=== PATIENT | male | born 1975 | race Caucasian/White ===

== ENCOUNTER 2016-08-11 10:57 | Emergency (ER) | payer SELFPAY ==
[2016-08-11] MEDS ORDERED: ACETAMINOPHEN 500 MG TABLET PO ONE (11:04)
--- NOTE | 2016-08-11 11:04 | Emergency Department Record ---
History of Present Illness - General Stated complaint: FINGER INJURY/WC Time Seen by Provider: 08/11/16 10:58 Source: Patient Mode of Arrival: Ambulatory Limitations: No limitations - History of Present Illness Initial comments: 41 yo male presents with a left middle finger injury. He hit the finger with a hammer. The pain was severe. He instantly had nausea and vomiting due to the pain. The finger continues to her and his nausea persists. The nail is intact. He is right handed. No chest pain, back pain, shortness of breath, no abdominal pain. MD Complaint: Joint pain, Other (Nausea and vomiting) -: Hour(s) (4) Location: Left, Other (Middle finger) -: Yes Arthralgia Radiation: Distal Quality: Aching Consistency: Constant Improves with: Nothing Worsens with: Palpation Associated Symptoms: Other (Nausea and vomiting) - Related Data Previous Rx's Medication Instructions Recorded Hydrocodone/Acetaminophen [Tiro 1 each PO Q8H #10 tablet 08/11/16 5-325 Tablet] Ondansetron [Zofran Odt] 4 mg PO Q8H #10 tab.rapdis 08/11/16 Allergies Allergy/AdvReac Type Severity Reaction Status Date / Time No Known Allergies Allergy PT UNSURE Verified 08/11/16 11:05 OF REACTION Review of Systems Constitutional: Denies: Chills, Fever, Weakness Eyes: Denies: Eye discharge ENT: Denies: Congestion, Throat pain Respiratory: Denies: Cough Cardiovascular: Denies: Chest pain, Palpitations, Syncope Endocrine: Denies: Fatigue Gastrointestinal: Reports: As per HPI, Nausea, Vomiting. Denies: Abdominal pain , Diarrhea Genitourinary: Denies: Dysuria, Frequency, Hematuria Musculoskeletal: Reports: As per HPI, Arthralgia Skin: Reports: As per HPI, Bruising Neurological: Denies: Confusion, Headache Psychiatric: Denies: Anxiety Hematological/Lymphatic: Denies: Blood Clots, Easy bleeding, Easy bruising, Swollen glands Physical Exam - General General Appearance: Alert, Oriented x3, Cooperative, No acute distress Limitations: No limitations - Head Head exam: Atraumatic, Normal inspection - Eye Eye exam: Normal appearance - ENT ENT exam: Normal exam Ear exam: Normal external inspection Nasal Exam: Normal inspection Mouth exam: Normal external inspection - Neck Neck exam: Normal inspection - Respiratory Respiratory exam: Normal lung sounds bilaterally. negative: Respiratory distress - Cardiovascular Cardiovascular Exam: Regular rate, Normal rhythm, Normal heart sounds Peripheral Pulses: 2+: Radial (L) - Rectal Rectal exam: Deferred - exam: Deferred - Extremities Extremities exam: Normal capillary refill, Tenderness. negative: Normal inspection, Calf tenderness, Pedal edema Image of Hand: 1 - tender swelling, bruising, 50% subungual hematoma - Neurological Neurological exam: Alert, Normal gait, Oriented X3, Reflexes normal - Psychiatric Psychiatric exam: Normal affect, Normal mood. negative: Agitated, Anxious - Skin Skin exam: Dry, Intact, Normal color, Warm Course - Reevaluation(s) Reevaluation #1: The finger XR was reviewed He has a tuft fracture of the tip 08/11/16 11:36 Reevaluation #2: Finger splint provided 08/11/16 11:42 Disposition Disposition: Discharge Clinical Impression: Finger contusion Qualifiers: Encounter type: initial encounter Finger: index finger Damage to nail status: without damage Laterality: left Qualified Code(s): S60.022A - Contusion of left index finger without damage to nail, initial encounter Nausea and vomiting Qualifiers: Vomiting type: unspecified Vomiting Intractability: non-intractable Qualified Code(s): R11.2 - Nausea with vomiting, unspecified Closed fracture of tuft of distal phalanx of finger Qualifiers: Encounter type: initial encounter Qualified Code(s): S62.639A - Displaced fracture of distal phalanx of unspecified finger, initial encounter for closed fracture Disposition: Home, Self-Care Condition: (1) Good Instructions: Finger Fracture (ED) Additional Instructions: Elevate to prevent swelling and throbbing Return if you have uncontrolled pain, nausea, vomiting or any new concerns Prescriptions: Hydrocodone/Acetaminophen [Tiro 5-325 Tablet] 1 each PO Q8H #10 tablet Ondansetron [Zofran Odt] 4 mg PO Q8H #10 tab.rapdis Time of Disposition: 11:38
[2016-08-11] MEDS ORDERED: ONDANSETRON 4 MG ODT TABLET SL ONE (11:12)
--- NOTE | 2016-08-11 17:21 | RADIOLOGY REPORT ---
EXAM: FINGER(S), LEFT HISTORY: PATIENT SMASHED HIS LEFT THIRD DIGIT TODAY WITH A HAMMER. TECHNIQUE: Three views of the left third digit are provided without comparison examinations. FINDINGS: There is a comminuted, mildly displaced fracture of the distal left third phalangeal tuft. Soft tissue swelling is noted at this location. No radiopaque foreign bodies are identified. IMPRESSION: COMMINUTED FRACTURE OF THE DISTAL LEFT THIRD PHALANGEAL TUFT IS NOTED. JOB NUMBER: [id number] MTDD
== END 2016-08-11 11:53 | disposition home or self-care (01) ==
LOC: ER 10:57
DX: S62.633A Displaced fracture of distal phalanx of left middle finger, initial encounter for closed fracture (principal); R11.2 Nausea with vomiting, unspecified; W22.8XXA Striking against or struck by other objects, initial encounter; Y93.43 Activity, gymnastics; Y99.0 Civilian activity done for income or pay
CPT/HCPCS: 73140; 99283

== ENCOUNTER 2018-06-22 20:27 | Emergency (ER) | payer BC ==
--- NOTE | 2018-06-22 20:40 | Emergency Department Record ---
History of Present Illness - General Chief complaint: ENT Stated complaint: LUMP IN NECK Time Seen by Provider: 06/22/18 20:33 Source: Patient Mode of Arrival: Ambulatory Limitations: No limitations - History of Present Illness Initial comments: 43 yo male presents to ED for evaluation of a mass to the left neck which has been present for approximately 6 months. Patient denies fevers, chills, or sore throat symptoms. Patient reports a significant family history of cancer, reports that his family convinced him to come to the ED for evaluation given the duration of his symptoms. Patient reports that he is a smoker, denies significant alcohol use. MD complaint: Other (Neck mass) Onset/Timin -: Month(s) Consistency: Constant, Getting worse Improves with: None Worsens with: None - Related Data Home Medications Medication Instructions Recorded Confirmed Last Taken No Home Med [NO HOME MEDS] 06/22/18 06/22/18 Unknown Allergies Allergy/AdvReac Type Severity Reaction Status Date / Time No Known Drug Allergies Allergy Verified 06/22/18 20:29 Travel Screening - Travel/Exposure Within Last 30 Days Have you traveled within the last 30 days?: No - Travel Symptoms Symptom Screening: None Review of Systems Constitutional: Denies: Chills, Fever, Malaise, Night sweats Eyes: Denies: Eye discharge, Eye pain ENT: Denies: Congestion, Ear pain, Epistaxis Respiratory: Denies: Cough, Dyspnea Cardiovascular: Denies: Chest pain, Dyspnea on exertion Endocrine: Denies: Fatigue, Heat or cold intolerance Gastrointestinal: Denies: Abdominal pain, Nausea, Vomiting Genitourinary: Denies: Incontinence, Retention Musculoskeletal: Reports: Other (Neck mass). Denies: Arthralgia, Back pain, Gout, Joint swelling Skin: Denies: Bruising, Change in color Neurological: Denies: Abnormal gait, Confusion, Headache, Seizure Psychiatric: Denies: Anxiety Hematological/Lymphatic: Denies: Anemia, Blood Clots Past Medical History - SOCIAL HISTORY Smoking Status: Current every day smoker - RESPIRATORY Hx Respiratory Disorders: No - CARDIOVASCULAR Hx Cardio Disorders: No - NEURO Hx Neuro Disorders: No - GI Hx GI Disorders: No - Hx Genitourinary Disorders: No - ENDOCRINE Hx Endocrine Disorders: No - MUSCULOSKELETAL Hx Musculoskeletal Disorders: No - PSYCH Hx Psych Problems: No - HEMATOLOGY/ONCOLOGY Hx Hematology/Oncology Disorders: No Family Medical History Any Significant Family History?: Yes Hx Cancer: Father, Grandparents *Diabetes Comment: Uncle Physical Exam - General General Appearance: Alert, Oriented x3, Cooperative, No acute distress Limitations: No limitations - Head Head exam: Atraumatic, Normocephalic, Normal inspection Head exam detail: negative: Abrasion, Contusion, Obrien's sign, General tenderness, Hematoma, Laceration - Eye Eye exam: Normal appearance. negative: Conjunctival injection, Periorbital swelling, Periorbital tenderness, Scleral icterus - ENT Ear exam: negative: Auricular hematoma, Auricular trauma Nasal Exam: negative: Active bleeding, Discharge, Dried blood, Foreign body Mouth exam: negative: Drooling, Laceration, Muffled voice, Tongue elevation - Neck Neck exam: Lymphadenopathy, Other (Lesion anterior cervical chain measuring approximately 2.0 cm in diameter). negative: Meningismus, Tenderness - Respiratory Respiratory exam: Normal lung sounds bilaterally. negative: Rales, Respiratory distress, Rhonchi, Stridor - Cardiovascular Cardiovascular Exam: Regular rate, Normal rhythm, Normal heart sounds - GI/Abdominal GI/Abdominal exam: Soft. negative: Rebound, Rigid, Tenderness - Rectal Rectal exam: Deferred - exam: Deferred - Extremities Extremities exam: Normal inspection. negative: Pedal edema, Tenderness - Back Back exam: Denies: CVA tenderness (R), CVA tenderness (L) - Neurological Neurological exam: Alert, Normal gait, Oriented X3 - Psychiatric Psychiatric exam: Normal affect, Normal mood - Skin Skin exam: Normal color. negative: Abrasion Type of lesion: negative: abrasion Course Vital Signs 06/22/18 20:32 Temperature 98.1 F Pulse Rate 78 Respiratory 16 Rate Blood Pressure 131/87 Pulse Ox 98 - Reevaluation(s) Reevaluation #1: 06/22/18 21:51 Laboratory studies were reviewed and are grossly unremarkable for an acute process. Reevaluation #2: 06/22/18 22:11 CT Neck Soft-Tissue: Lymphadenopathy left jugular chain, largest measuring 2.4 cm Consider biopsy Patient was updated on all results, reviewed imaging with the patient and family members. Will place consult for Dr. Allen tomorrow morning for possible biopsy as outpatient. Medical Decision Making - Lab Data Result diagrams: 06/22/18 20:40 06/22/18 20:40 Disposition Disposition: Discharge Clinical Impression: Lymphadenopathy of left cervical region Disposition: Home, Self-Care Condition: (2) Stable Instructions: Lymphadenopathy (ED) Additional Instructions: Return to ED if your symptoms worsen or if you have any concerns. Follow-up with Dr. Dowell tomorrow morning for further evaluation. Referrals: DEE ALLEN [DOCTOR OF OSTEOPATH] - [facility] [Provider Group] Forms: Patient Portal Access Time of Disposition: 22:14 Quality - Quality Measures Quality Measures: N/A - Blood Pressure Screening Does Patient Have Any of the Following: No Blood Pressure Classification: Pre-Hypertensive BP Reading Systolic Measurement: 131 Diastolic Measurement: 87 Screening for High Blood Pressure: < Pre-Hypertensive BP, F/U Documented > [ G8950] Pre-Hypertensive Follow-up Interventions: Referral to alternative/primary care provider.
[2018-06-22 20:54] LABS: ABSOLUTE NEUTROPHIL COUNT 3.64; BASO % 0.5 % (0-6); EOS % 1.4 % (0-6); GRAN % 47.2 % (47-80); HEMATOCRIT 40.4 % (42.0-52.0); HEMOGLOBIN 13.1 gm/dl (14.0-18.0); MEAN CELL VOLUME 97.8 fl (81-97); MEAN CORPUSCULAR HEMOGLOBIN 31.7 pg (27-33); MEAN CORPUSCULAR HGB CONC 32.4 g/dl (32-36); MEAN PLATELET VOLUME 9.6 fl (7.4-10.4); MONO % 6.9 % (0-9); PLATELET COUNT 232 K/uL (130-400); RED BLOOD COUNT 4.13 M/uL (4.40-5.70); WHITE BLOOD COUNT W/O DIFF 7.7 K/uL (4.2-12.2)
[2018-06-22 21:03] LABS: BLOOD UREA NITROGEN 13 mg/dL (6-20); CREATININE 0.9 mg/dL (0.7-1.2); EST GLOMERULAR FILTRATION RATE > 60 mL/min
[2018-06-22 21:04] LABS: TOTAL PROTEIN 5.8 g/dL (6.6-8.7)
[2018-06-22 21:06] LABS: GLUCOSE,RANDOM 91 mg/dL (74-109)
[2018-06-22 21:08] LABS: ALT/SGPT 9 U/L (<41); AST/SGOT 16 U/L (10.0-50.0)
[2018-06-22 21:09] LABS: ALB/GLOB RATIO 2.1 (1.1-1.8); ALBUMIN 3.9 g/dL (4.0-5.0); ALKALINE PHOSPHATASE 59 U/L (40-129)
== END 2018-06-22 22:30 | disposition home or self-care (01) ==
LOC: ER 20:27
DX: R59.0 Localized enlarged lymph nodes (principal); F17.210 Nicotine dependence, cigarettes, uncomplicated
CPT/HCPCS: 70491; 80053; 85025; 99283; 99284

== ENCOUNTER 2018-07-05 06:44 | Day surgery (SDC) | payer BC ==
[~2018-07-05 06:44] MED LIST: ACETAMINOPHEN 1,000 MG/100 ML BTL IVPB ONE
[2018-07-05] MEDS ORDERED: PROPOFOL 10 MG/ML VIAL IV ONE (06:45)
[2018-07-05] MEDS ORDERED: LIDOCAINE 2% MDV (20MG/ML) 20ML VIAL IV ONE (06:45)
[2018-07-05] MEDS ORDERED: MIDAZOLAM HCL 2MG/2ML VIAL IV ONE (06:45)
[2018-07-05] MEDS ORDERED: FENTANYL PF 100MCG/2ML VIAL IV ONE (06:45)
[2018-07-05] MEDS ORDERED: ONDANSETRON HCL IV 4 MG/2 ML VIAL IVP ONE (06:45)
[2018-07-05] MEDS ORDERED: RINGERS SOLUTION,LACTATED 1,000 ML IV ONE ×2 (07:15→09:07)
[2018-07-05] MEDS ORDERED: BUPIVACAINE 0.25% W/EPI MPF 30ML VIAL SQ ONE (08:56)
[2018-07-05] MEDS ORDERED: HYDROCODONE/APAP 5/325MG TABLET PO ONE (09:40)
--- NOTE | 2018-07-06 08:20 | Operative Note ---
DATE OF SURGERY: 07/05/2018 SURGEON: Calixto Guzman DO PREOPERATIVE DIAGNOSIS: Left cervical lymphadenopathy. POSTOPERATIVE DIAGNOSIS: Left cervical lymphadenopathy. OPERATION: Excision of left cervical lymph node. INDICATION: The patient is a 43-year-old male who has had a mass in the left side of his neck for quite some time. He did have imaging which was consistent with probable lymph node. We did discuss excision. Risks, benefits, and alternatives were discussed. Risks include bleeding, infection, postop seroma formation, injury to facial nerve. He understood this fully. Thereafter, consent was signed and questions answered. PROCEDURE: The patient was taken to the operating room and placed in a supine position. General anesthesia was administered per the department of anesthesia. The patient's neck was prepped and draped in the usual fashion. At this time, adequate timeout was performed. He did receive preoperative antibiotic. At this time, the area over the mass was anesthetized with a total of 10 mL of 0.25% Sensorcaine with epinephrine. A 2 cm oblique incision was made along the jawline on the left, just below the jawline on the left. This was carried down to a capsule of what appeared to be a large lipoma. This was dissected free from the surrounding tissue with cautery. I did ligate the pedicle with 3-0 Vicryl. The specimen was then sent fresh for flow cytometry. The wound was then rechecked and found to be hemostatic. It was closed with 3-0 and 4-0 Vicryl. He was taken to the recovery room in satisfactory condition. Final pathology pending. [facility] DIVISIONKirsty
== END 2018-07-05 10:00 | disposition home or self-care (01) ==
LOC: SUR 06:44
PROVIDERS: ATTEND Surgery
DX: R59.0 Localized enlarged lymph nodes (principal)
CPT/HCPCS: 38510; 00320; J2405; J3010; J7120

== ENCOUNTER 2018-07-17 16:55 | Emergency (ER) | payer BC ==
[2018-07-17] MEDS ORDERED: 0.9 % SODIUM CHLORIDE 1,000 ML BAG IV ONE ×2 (17:18→18:21)
--- NOTE | 2018-07-17 17:21 | Emergency Department Record ---
History of Present Illness - General Chief Complaint: Back Pain/Injury Stated Complaint: BACK INJURY Time Seen by Provider: 07/17/18 17:07 Source: Patient - History of Present Illness Initial Comments: The patient states he was helping a friend build his barn when he fell from 7 feet high onto a metal bar from a forklift. He landed on his right posterior pelvis/flank/buttock. This is his first day to be seen for the injury as he was already off work recovering from a lymph node biopsy from 10 days ago. He states he decided to come in because it is more swollen over his bruise on his sacrum and right buttock. He has been having BM's, but he has decreased apetite. He denies chest, head, neck, abdomen pain. Prior to arriving he states he ate a giant sub sandwich. He states he lives alone and has partial custody of his 8 year old daughter who just went to her mother's yesterday, which is partly why he waited to come here. About 10 days ago he had a lymph node bx by Dr. Guzman and was given [employer] for that. He states the bx came back normal. MD Complaint: Back injury (right buttock, sacrum, lower flank), Fall Onset/Timin -: Days(s) Similar Symptoms Previously: No Radiation: None Severity: Moderate Severity scale (1-10): 8 Quality: Sharp Consistency: Constant Improves With: None Worsens With: Movement Context: Fall Associated Symptoms: Denies other symptoms - Related Data Allergies Allergy/AdvReac Type Severity Reaction Status Date / Time No Known Drug Allergies Allergy Verified 06/22/18 20:29 Travel Screening - Travel/Exposure Within Last 30 Days Have you traveled within the last 30 days?: No Review of Systems Reviewed: No additional complaints except as noted below Constitutional: Reports: As per HPI. Denies: Chills, Fever, Malaise, Night sweats, Weakness, Weight change Eyes: Reports: As per HPI. Denies: Eye discharge, Eye pain, Photophobia, Vision change ENT: Reports: As per HPI. Denies: Congestion, Dental pain, Ear pain, Epistaxis, Hearing loss, Throat pain Respiratory: Reports: As per HPI. Denies: Cough, Dyspnea, Hemoptysis, Stridor, Wheezes Cardiovascular: Reports: As per HPI. Denies: Arrhythmia, Chest pain, Dyspnea on exertion, Edema, Murmurs, Orthopnea, Palpitations, Paroxysmal nocturnal dyspnea, Rheumatic Fever, Syncope Endocrine: Reports: As per HPI. Denies: Fatigue, Heat or cold intolerance, Polydipsia, Polyuria Gastrointestinal: Reports: As per HPI. Denies: Abdominal pain, Constipation, Diarrhea, Hematemesis, Hematochezia, Melena, Nausea, Vomiting Genitourinary: Reports: As per HPI. Denies: Dysuria, Frequency, Hematuria, Incontinence, Retention, Testicular pain, Testicular mass, Urgency Musculoskeletal: Reports: As per HPI. Denies: Arthralgia, Back pain, Gout, Joint swelling, Myalgia, Neck pain Skin: Reports: As per HPI. Denies: Bruising, Change in color, Change in hair/nails, Lesions, Pruritus, Rash Neurological: Reports: As per HPI. Denies: Abnormal gait, Confusion, Headache, Numbness, Paresthesias, Seizure, Tingling, Tremors, Vertigo, Weakness Psychiatric: Reports: As per HPI. Denies: Anxiety, Auditory hallucinations, Depression, Homicidal thoughts, Suicidal thoughts, Visual hallucinations Hematological/Lymphatic: Reports: As per HPI. Denies: Anemia, Blood Clots, Easy bleeding, Easy bruising, Swollen glands Past Medical History - SOCIAL HISTORY Smoking Status: Current every day smoker - RESPIRATORY Hx Respiratory Disorders: No - CARDIOVASCULAR Hx Cardio Disorders: No - NEURO Hx Neuro Disorders: No - GI Hx GI Disorders: No - Hx Genitourinary Disorders: No - ENDOCRINE Hx Endocrine Disorders: No - MUSCULOSKELETAL Hx Musculoskeletal Disorders: No - PSYCH Hx Psych Problems: No - HEMATOLOGY/ONCOLOGY Hx Hematology/Oncology Disorders: No Family Medical History Any Significant Family History?: Yes Hx Cancer: Father, Grandparents *Diabetes Comment: Uncle Physical Exam - General General Appearance: Alert, Oriented x3, Cooperative, Mild distress, Other (trace of ETOH vs. ketone odor on breath, no slurred speech, or disorientation.) - Head Head exam: Normal inspection - Eye Eye exam: Normal appearance, PERRL Pupils: Normal accommodation - ENT ENT exam: Normal exam, Mucous membranes moist, Normal external ear exam, Normal orophraynx, TM's normal bilaterally Ear exam: Normal external inspection. negative: External canal tenderness Nasal Exam: Normal inspection. negative: Discharge, Sinus tenderness Mouth exam: Normal external inspection, Tongue normal Teeth exam: Normal inspection. negative: Dental caries Throat exam: Normal inspection. negative: Tonsillar erythema, Tonsillar exudate - Neck Neck exam: Normal inspection, Full ROM, Lymphadenopathy (with recent left sided surgical incision which is healing well, clean and dry, no evidence cellulitis). negative: Tenderness - Respiratory Respiratory exam: Normal lung sounds bilaterally. negative: Respiratory distress - Cardiovascular Cardiovascular Exam: Regular rate, Normal rhythm, Normal heart sounds - GI/Abdominal GI/Abdominal exam: Soft, Normal bowel sounds. negative: Distended, Guarding, Rebound, Rigid, Tenderness - Rectal Rectal exam: Deferred - exam: Deferred - Extremities Extremities exam: Normal inspection, Full ROM, Normal capillary refill. negative: Calf tenderness, Pedal edema, Tenderness - Back Back exam: Reports: Normal inspection, Full ROM. Denies: Muscle spasm, Rash noted, Tenderness Image of Body Front/Back: 1 - large hematoma which is several days old, swelling towards sacrum; marked tenderness over contused region. - Neurological Neurological exam: Alert, Normal gait, Oriented X3, Reflexes normal - Psychiatric Psychiatric exam: Normal affect, Normal mood - Skin Skin exam: Dry, Intact, Normal color, Warm Course Vital Signs 07/17/18 17:00 Temperature 98.3 F Pulse Rate 91 H Respiratory 20 Rate Blood Pressure 127/76 Pulse Ox 99 - Reevaluation(s) Reevaluation #1: 07/17/18 18:19 Patient prefers to walk to CT scan due to his injury causes pain when sitting. Reevaluation #2: Patient is back from CT. Requests tylenol for pain while awaiting CT results. Lab results discussed. 07/17/18 18:33 Reevaluation #3: Discussed CT results with patients. All questions answered. Ready for DC home. 07/17/18 19:05 Medical Decision Making - Management Options MDM Management: No Additional Work-up Planned - Data Complexity MDM Data: Labs Ordered and/or Reviewed, X-Ray Ordered and/or Reviewed (CT abd/Pelvis: 12 by 15 by 5.5 cm subcutaneous hematoma right buttock with NO underlying fracture. Some chronic nonacute findings also seen such a right renal cyst, small liver cyst, both seen on prior studies) - Lab Data Result diagrams: 07/17/18 17:25 07/17/18 17:25 Disposition Disposition: Discharge Clinical Impression: Traumatic hematoma of buttock Qualifiers: Encounter type: initial encounter Qualified Code(s): S30.0XXA - Contusion of lower back and pelvis, initial encounter Disposition: Home, Self-Care Condition: (1) Good Instructions: Contusion in Adults (ED) Additional Instructions: Increase fluid intake. Continue with tylenol alternated with ibuprofen as needed as directed for pain. PCP follow up as needed. Give PCP referral list. Quality - Quality Measures Quality Measures: N/A - Blood Pressure Screening Does Patient Have Any of the Following: No Blood Pressure Classification: Pre-Hypertensive BP Reading Systolic Measurement: 127 Diastolic Measurement: 76 Screening for High Blood Pressure: < Normal BP, F/U Not Required > [G8783]
[2018-07-17 17:39] LABS: BASO % 0.5 % (0-6); GRAN % 71.9 % (47-80); HEMATOCRIT 38.2 % (42.0-52.0); HEMOGLOBIN 12.3 gm/dl (14.0-18.0); LYMPH % 14.7 % (16-45); MEAN CELL VOLUME 98.5 fl (81-97); MEAN CORPUSCULAR HEMOGLOBIN 31.7 pg (27-33); MEAN CORPUSCULAR HGB CONC 32.2 g/dl (32-36); MEAN PLATELET VOLUME 9.6 fl (7.4-10.4); MONO % 10.9 % (0-9); PLATELET COUNT 234 K/uL (130-400); RED BLOOD COUNT 3.88 M/uL (4.40-5.70); RED CELL DISTRIBUTION WIDTH 13.6 % (11.5-14.5)
[2018-07-17 17:49] LABS: URINE APPEARANCE CLEAR; URINE BILIRUBIN SMALL (NEGATIVE); URINE BLOOD NEGATIVE (NEGATIVE); URINE COLOR YELLOW; URINE GLUCOSE (UA) NEGATIVE (NEGATIVE); URINE KETONE NEGATIVE (NEGATIVE); URINE LEUKOCYTE ESTERASE NEGATIVE (NEGATIVE); URINE NITRITE NEGATIVE (NEGATIVE); URINE PROTEIN NEGATIVE (NEGATIVE)
[2018-07-17 17:51] LABS: BLOOD UREA NITROGEN 13 mg/dL (6-20); EST GLOMERULAR FILTRATION RATE > 60 mL/min
[2018-07-17 17:52] LABS: PARTIAL THROMBOPLASTIN TIME 28.7 SECONDS (24.5-39.1); PROTHROMBIN TIME (PATIENT) 10.2 SECONDS (9.5-12.1)
[2018-07-17 17:53] LABS: GLUCOSE,RANDOM 103 mg/dL (74-109)
[2018-07-17 17:54] LABS: AMPHETAMINE SCREEN URINE NOT DETECTED; BARBITURATE SCREEN URINE NOT DETECTED; BENZODIAZEPINE SCREEN URINE NOT DETECTED; COCAINE SCREEN URINE NOT DETECTED; METHADONE SCREEN URINE NOT DETECTED; METHAMPHETAMINE SCREEN NOT DETECTED; OPIATE SCREEN URINE NOT DETECTED; OXYCODONE SCREEN URINE NOT DETECTED; PHENCYCLIDINE SCREEN URINE NOT DETECTED; PROPOXYPHENE SCREEN URINE NOT DETECTED; THC SCREEN URINE NOT DETECTED; TRICYCLIC ANTIDEPRESSANT SCRN NOT DETECTED
[2018-07-17 17:56] LABS: ALB/GLOB RATIO 1.6 (1.1-1.8); ALBUMIN 3.7 g/dL (4.0-5.0); ALKALINE PHOSPHATASE 64 U/L (40-129); ALT/SGPT 10 U/L (<41); AST/SGOT 15 U/L (10.0-50.0)
[2018-07-17] MEDS ORDERED: ACETAMINOPHEN 500 MG TABLET PO ONE (18:32)
--- NOTE | 2018-07-18 21:53 | CT SCAN REPORT ---
EXAM: CT SCAN ABDOMEN/PELVIS W CONTRAST HISTORY: PATIENT FELL FROM 7' FOUR DAYS AGO WITH BUTTOCK AND FLANK PAIN ON THE RIGHT. TECHNIQUE: Axial CT scan of the abdomen and pelvis obtained following IV contrast administration. No oral contrast utilized at the referring physician's request. Please see the medical record for IV contrast specifics. COMPARISON: CT urogram 01/31/2011. FINDINGS: The gallbladder is largely contracted with no calcified gallstones seen within the gallbladder. There is an approximately 1.8 cm low-attenuation focus anteriorly in the left lobe of the liver. This was present on the prior CT urogram, when it measured slightly larger at about 2 cm in diameter and is of doubtful clinical significance. No new hepatic mass identified compared to the prior study. No definite splenic, adrenal, or pancreatic mass identified. There are a couple low-attenuation masses in the left kidney, the larger measuring about 1.[address] density of 11 consistent with a cyst. This was present previously, although measured smaller on the prior exam. A second tiny low-attenuation focus anteriorly in the left kidney was not clearly seen on the prior study. This measures only about 7 mm in size and has a CT density of 15 consistent with a cyst. There are probably a couple even tinier low-attenuation foci in the right kidney, which are too small to accurately measure but likely additional tiny right renal cysts. No left renal mass identified. Evaluation of the bowel extremely limited without oral contrast. However, I believe the appendix is identified as a normal-caliber air-containing structure with no appendicitis evident. Small amount of calcification in the prostate. Thick-walled appearance of the urinary bladder is nonspecific, although may simply be due to incomplete distention. The lung bases appear clear. No free intraperitoneal air identified. Tiny umbilical hernia containing adipose tissue but no bowel. Compared to the prior study, there is a new prominent soft tissue density in the subcutaneous tissues of the right buttock extending slightly across midline to the left, measuring about 15 cm in maximum transverse, by 5.5 cm in maximum AP diameters and having a craniocaudal extent of about 12 cm. Given the history of trauma with pain in this region, this is probably a hematoma in the subcutaneous tissues in the region of the right buttock superficial to the gluteus amanda muscle. No definite underlying bony fracture identified. IMPRESSION: 1. APPEARANCE CONSISTENT WITH A LARGE HEMATOMA IN THE SUBCUTANEOUS TISSUES OF THE RIGHT BUTTOCK SUPERFICIAL TO THE GLUTEUS AMANDA MUSCLE EXTENDING SLIGHTLY ACROSS MIDLINE TO THE LEFT PARAMEDIAN LOCATION WELL. 2. NUMEROUS OTHER NONACUTE APPEARING FINDINGS, NOTED ABOVE. [facility]: [id number] [facility]
== END 2018-07-17 19:18 | disposition home or self-care (01) ==
LOC: ER 16:55
DX: S30.0XXA Contusion of lower back and pelvis, initial encounter (principal); W17.89XA Other fall from one level to another, initial encounter; Y93.H3 Activity, building and construction; Y92.71 Barn as the place of occurrence of the external cause; Z98.890 Other specified postprocedural states; F17.210 Nicotine dependence, cigarettes, uncomplicated
CPT/HCPCS: 99284 ×2; 85025; 85730; 85610; 80053; 81003; 80305; 74177; G0480; Q9967; 80320; J7030